=== PATIENT | female | born 1995 | race Caucasian/White ===

== ENCOUNTER 2017-08-31 05:46 | Emergency (ER) | payer MEDICAID ==
[2017-08-31 06:07] VITALS: BP 107/65
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
[2017-08-31] MEDS ORDERED: IBUPROFEN 600 MG TABLET PO STA (07:31)
[2017-08-31] MEDS ORDERED: CYCLOBENZAPRINE 10 MG TABLET PO STA (07:31)
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
[2017-08-31] MEDS ORDERED: IBUPROFEN 400 MG TABLET PO STA (07:41)
== END 2017-08-31 08:01 | disposition home or self-care (01) ==
LOC: ED 05:46
DX: S89.92XA Unspecified injury of left lower leg, initial encounter (principal); M54.5 Low back pain; V09.20XA Pedestrian injured in traffic accident involving unspecified motor vehicles, initial encounter; Y92.488 Other paved roadways as the place of occurrence of the external cause; F17.200 Nicotine dependence, unspecified, uncomplicated
CPT/HCPCS: 72100; 72220; 73560; 99283; A9270